=== PATIENT | male | born 1990 | race Caucasian/White ===

== ENCOUNTER 2020-07-22 18:13 | Emergency (ER) | payer OTHER ==
[2020-07-22 20:23] VITALS: BP 124/73
== END 2020-07-22 20:41 | DRG 605 ==
LOC: ED 18:13
PROC: 0HQ1XZZ Repair Face Skin, External Approach (ICD-10-PCS; principal; 2020-07-22)
PROC: 0HQ0XZZ Repair Scalp Skin, External Approach (ICD-10-PCS; 2020-07-22)
PROC: 0HQ4XZZ Repair Neck Skin, External Approach (ICD-10-PCS; 2020-07-22)
DX: S01.01XA Laceration without foreign body of scalp, initial encounter (principal); S01.21XA Laceration without foreign body of nose, initial encounter; S11.91XA Laceration without foreign body of unspecified part of neck, initial encounter; S40.812A Abrasion of left upper arm, initial encounter; X99.9XXA Assault by unspecified sharp object, initial encounter; Y92.149 Unspecified place in prison as the place of occurrence of the external cause